=== PATIENT | female | born 1975 | race Caucasian/White ===

== ENCOUNTER 2018-04-15 06:56 | Emergency (ER) | payer OTHER ==
[2018-04-15] MEDS: NS 500 ML IV ×2 (07:31→11:16)
[2018-04-15 07:49] LABS: AMORPHOUS SEDIMENT RFX SMALL (NEGATIVE); BASO # 0.1 10^3/uL (0.0-0.2); BASO % 0.6 % (0.0-1.0); EOS # 0.2 10^3/uL (0.0-0.50); EOS % 1.3 % (0.0-3.0); HEMATOCRIT 37.4 % (36.0-47.0); HEMOGLOBIN 12.4 g/dl (12.0-15.5); IMMATURE GRANULOCYTE % 0.4 % (0-3.0); KETONE, URINE AUTO RFX NEGATIVE (NEGATIVE); LEUKOCYTE ESTERASE UR AUTO RFX NEGATIVE (NEGATIVE); LYMPH # 2.7 10^3/uL (1.5-4.5); MEAN CORPUSCULAR HEMOGLOBIN 29.4 pg (27.0-33.0); MEAN CORPUSCULAR HGB CONC 33.2 g/dl (32.0-36.5); MEAN CORPUSCULAR VOLUME 88.6 fl (80.0-96.0); MONO # 0.9 10^3/uL (0.0-0.8); MUCUS, URINE RFX SMALL (NEGATIVE); NEUTROPHILS # 10.2 10^3/uL (1.8-7.7); NEUTROPHILS % 72.7 % (36.0-66.0); NITRITE, URINE AUTO RFX NEGATIVE (NEGATIVE); PLATELET COUNT, AUTOMATED 499 10^3/uL (150-450); RBC, URINE AUTO RFX 2 /HPF (0-3); RED BLOOD COUNT 4.22 10^6/uL (4.00-5.40); RED CELL DISTRIBUTION WIDTH 13.8 % (11.5-14.5); SPECIFIC GRAVITY UR AUTO RFX 1.014 (1.002-1.035); SQUAM EPITHELIAL CELL UR AURFX 20 /HPF (0-6); WBC, URINE AUTO RFX 2 /HPF (0-3); WHITE BLOOD COUNT 14.1 10^3/uL (4.0-10.0)
[2018-04-15 08:27] LABS: LACTIC ACID SEPSIS PROTOCOL 1.2 MMOL/L (0.4-2.0)
[2018-04-15] MEDS: ONDANSETRON 4 MG ORAL DISINTEGRATING TAB (Q0162 PER 1MG) PO (08:57)
[2018-04-15] MEDS: NS 1,000 ML IV (08:57)
[2018-04-15 09:01] LABS: ALBUMIN 3.6 GM/DL (3.2-5.2); ALKALINE PHOSPHATASE 74 U/L (45-117); ALT/SGPT 25 U/L (12-78); AMYLASE 47 U/L (25-115); ANION GAP 9 MEQ/L (8-16); AST/SGOT 19 U/L (7-37); BILIRUBIN,DIRECT 0.1 MG/DL (0.0-0.2); BILIRUBIN,TOTAL 0.4 MG/DL (0.2-1.0); BLOOD UREA NITROGEN 12 MG/DL (7-18); C REACTIVE PROTEIN QUANTITATIV 2.15 MG/DL (0.00-0.30); CALCIUM LEVEL 8.3 MG/DL (8.5-10.1); CARBON DIOXIDE LEVEL 27 MEQ/L (21-32); CHLORIDE LEVEL 104 MEQ/L (98-107); CREATININE FOR GFR 0.78 MG/DL (0.55-1.30); GLOMERULAR FILTRATION RATE > 60.0 (>58); GLUCOSE, FASTING 104 MG/DL (70-100); LIPASE 49 U/L (73-393); POTASSIUM SERUM 3.3 MEQ/L (3.5-5.1); SODIUM LEVEL 140 MEQ/L (136-145); TOTAL PROTEIN 7.6 GM/DL (6.4-8.2)
[2018-04-15] MEDS: POTASSIUM CHLORIDE 10 MEQ SR TABLET PO (11:12)
[2018-04-15] MEDS: GASTROGRAFIN SOLUTION 30ML PO ×2 (11:57→12:35)
[2018-04-15] MEDS ORDERED: ISOVUE-370 76% 100ML VIAL (Q9967) As Ordered (13:09)
== END 2018-04-15 15:54 | disposition home or self-care (01) ==
LOC: M ED 06:56
DX: A09 Infectious gastroenteritis and colitis, unspecified (principal); I10 Essential (primary) hypertension; Z88.0 Allergy status to penicillin; J30.81 Allergic rhinitis due to animal (cat) (dog) hair and dander; Z79.899 Other long term (current) drug therapy; Z83.79 Family history of other diseases of the digestive system
CPT/HCPCS: Q9963

== ENCOUNTER → 2020-02-09 | Outpatient (REF) | payer OTHER ==
[~2020-02-09] MED LIST: BUPR15TASR PO; MULTCAP PO; NIFE1TAB52 PO; ZOFR4TAB14 SL
== END ==
LOC: M LAB REF 12:16
PROVIDERS: ATTEND Physician Assistant
DX: J02.9 Acute pharyngitis, unspecified (principal)

== ENCOUNTER → 2022-06-08 | Outpatient (REF) | payer OTHER | LOC: M LAB REF 16:22 | PROVIDERS: ATTEND Student in an Organized Health Care Education/Training Program | DX: J02.9 Acute pharyngitis, unspecified (principal) ==

== ENCOUNTER → 2022-06-21 | Outpatient (CLI) | payer OTHER ==
[~2022-06-21] MED LIST changes: +B-122500 PO; +BIOT1TAB6 PO; +BUPR1TAB52 PO; +CETI10CA2 PO; +VITMTA PO
== END ==
LOC: M LABSMTC 09:45
PROVIDERS: ATTEND Anesthesiology
DX: Z01.812 Encounter for preprocedural laboratory examination (principal); Z11.52 Encounter for screening for COVID-19

== ENCOUNTER 2022-06-23 13:13 | Observation (INO) | payer OTHER ==
[~2022-06-23] VITALS: Ht 152.4 cm; Wt 70.8 kg
[~2022-06-23 13:13] MED LIST changes: +HEPARIN SOD (PORCINE) 5000UNITS/ML 1ML VIAL/SYRINGE SQ ONE; +ceFAZolin SOD 2 GM in IV 1 EA IV ONE
[2022-06-23] MEDS ORDERED: fentaNYL 250 MCG/5 ML INJECTION As Ordered ONE (13:20)
[2022-06-23] MEDS ORDERED: propofoL 200 MG/20 ML VIAL As Ordered ONE (13:20)
[2022-06-23] MEDS ORDERED: ROCURONIUM BROMIDE 50MG/5ML VIAL As Ordered ONE ×2 (13:20→17:26)
[2022-06-23] MEDS ORDERED: LIDOCAINE 2% 100MG/5ML SDV (FOR ANES.) As Ordered ONE (13:20)
[2022-06-23] MEDS ORDERED: MIDAZOLAM INJ 2MG/2ML VIAL As Ordered ONE (13:20)
[2022-06-23] MEDS ORDERED: HIBI4LIQ (13:31)
[2022-06-23] MEDS ORDERED: MUPI2OI (13:31)
[2022-06-23] MEDS ORDERED: LR 1,000 ML IV SCH ×3 (13:35→20:10)
[2022-06-23] MEDS ORDERED: LACRILUBE (AKWA TEARS) OPHTH OINT 3.5GM As Ordered ONE (15:39)
[2022-06-23] MEDS ORDERED: GENTAMICIN SULF 80MG/2ML VIAL As Ordered ONE (15:42)
[2022-06-23] MEDS ORDERED: BUPIVACAINE HCL 0.25% 10ML VIAL As Ordered ONE (15:42)
[2022-06-23] MEDS ORDERED: BUPIVACAINE LIPOSOME/PF 1.3% 20ML VIAL (13.3MG/ML)(EXPAREL) As Ordered ONE (15:43)
[2022-06-23] MEDS ORDERED: ACETAMINOPHEN 1000MG 100ML IV BAG As Ordered ONE (16:47)
[2022-06-23] MEDS ORDERED: fentaNYL 100 MCG/2 ML INJECTION As Ordered ONE (18:04)
[2022-06-23] MEDS ORDERED: HYDROmorphone HCL 2MG/ML 1ML VIAL As Ordered ONE (18:04)
[2022-06-23] MEDS ORDERED: METOCLOPRAMIDE INJ 10MG/2ML VIAL As Ordered ONE (18:09)
[2022-06-23] MEDS ORDERED: ONDANSETRON 4MG 2ML VIAL As Ordered ONE (18:09)
[2022-06-23] MEDS ORDERED: SUGAMMADEX SODIUM 500 MG/5 ML VIAL (BRIDION) As Ordered ONE (19:24)
[2022-06-23] MEDS ORDERED: fentaNYL 100 MCG/2 ML INJECTION IV PRN (20:05)
[2022-06-23] MEDS ORDERED: ONDANSETRON 4MG 2ML VIAL IV PRN ×2 (20:05→20:10)
[2022-06-23] MEDS ORDERED: oxyCODONE 5MG TAB PO PRN (20:05)
[2022-06-23] MEDS ORDERED: PERCOCET 5MG/325MG TAB PO PRN (20:10)
[2022-06-23] MEDS ORDERED: ACETAMINOPHEN TAB 650MG DOSE (2X325MG) PO PRN (20:10)
[2022-06-23] MEDS ORDERED: traMADol 50 MG TAB PO PRN (20:10)
[2022-06-23 21:15] VITALS: BP 132/88
[2022-06-23 22:20] VITALS: BP 141/91
[2022-06-23] MEDS ORDERED: CLINDAMYCIN 900 MG in IV 1 EA IV ONE (22:30)
[2022-06-23 23:20] VITALS: BP 121/81
[2022-06-24 00:20] VITALS: BP 120/79
[2022-06-24 01:20] VITALS: BP 119/79
[2022-06-24 02:00] VITALS: BP 114/73
[2022-06-24 06:00] VITALS: BP 117/74
[2022-06-24 07:32] LABS: HEMATOCRIT 30.6 % (36.0-47.0); HEMOGLOBIN 10.2 g/dl (12.0-15.5); MEAN CORPUSCULAR HEMOGLOBIN 30.9 pg (27.0-33.0); MEAN CORPUSCULAR HGB CONC 33.3 g/dl (32.0-36.5); MEAN CORPUSCULAR VOLUME 92.7 fl (80.0-96.0); PLATELET COUNT, AUTOMATED 433 10^3/uL (150-450); WHITE BLOOD COUNT 17.4 10^3/uL (4.0-10.0)
[2022-06-24 08:00] LABS: BLOOD UREA NITROGEN 9 MG/DL (9-23); CALCIUM LEVEL 8.5 MG/DL (8.5-10.1); CARBON DIOXIDE LEVEL 28 MMOL/L (20-31); CHLORIDE LEVEL 102 MMOL/L (98-107); CREATININE FOR GFR 0.55 MG/DL (0.55-1.30); GLOMERULAR FILTRATION RATE > 60.0 (>58); GLUCOSE, FASTING 128 MG/DL (60-100); POTASSIUM SERUM 4.3 MMOL/L (3.5-5.1); SODIUM LEVEL 136 MMOL/L (136-145)
[2022-06-24] MEDS ORDERED: HOME MED LIST COMPLETE! XX SCH (09:10)
[2022-06-24 10:00] VITALS: BP 98/64
[2022-06-24 12:12] LABS: HEMATOCRIT 30.8 % (36.0-47.0); HEMOGLOBIN 10.1 g/dl (12.0-15.5); MEAN CORPUSCULAR HEMOGLOBIN 31.1 pg (27.0-33.0); MEAN CORPUSCULAR HGB CONC 32.8 g/dl (32.0-36.5); MEAN CORPUSCULAR VOLUME 94.8 fl (80.0-96.0); PLATELET COUNT, AUTOMATED 441 10^3/uL (150-450); RED BLOOD COUNT 3.25 10^6/uL (4.00-5.40); WHITE BLOOD COUNT 20.3 10^3/uL (4.0-10.0)
[2022-06-24 14:00] VITALS: BP 123/75
[2022-06-24] MEDS ORDERED: TRAM50TA2 PO (14:45)
[2022-06-24] MEDS ORDERED: CIPR-249 PO (16:05)
== END 2022-06-24 16:00 | disposition home or self-care (01) ==
LOC: M SDC 13:13 → M ED INP 20:06 → M MS5PR 20:55
PROVIDERS: ADMIT Plastic Surgery Surgery of the Hand; ATTEND Plastic Surgery Surgery of the Hand
DX: M54.07 Panniculitis affecting regions of neck and back, lumbosacral region (principal); Z88.1 Allergy status to other antibiotic agents; Z88.0 Allergy status to penicillin; Z98.84 Bariatric surgery status
CPT/HCPCS: 15830; 36415; 80048; 81025; 85027; 88300; 96365; C9290; J0131; J0690; J1100; J1170; J1580; J1644; J2250; J2405; J2765; J3010; S0020; S0077

== ENCOUNTER → 2023-08-26 | Outpatient (CLI) | payer OTHER ==
[~2023-08-26] MED LIST changes: +CIPR-249 PO; -HEPARIN SOD (PORCINE) 5000UNITS/ML 1ML VIAL/SYRINGE SQ ONE; +HIBI4LIQ; +MUPI2OI; +TRAM50TA2 PO; -ceFAZolin SOD 2 GM in IV 1 EA IV ONE
== END ==
LOC: M WHC 14:37
PROVIDERS: ATTEND Advanced Practice Midwife
DX: Z12.31 Encounter for screening mammogram for malignant neoplasm of breast (principal)

== ENCOUNTER → 2023-09-08 | Outpatient (REF) | payer OTHER | LOC: M SFHCWAGY 12:39 | PROVIDERS: ATTEND Advanced Practice Midwife | DX: Z12.4 Encounter for screening for malignant neoplasm of cervix (principal); Z11.51 Encounter for screening for human papillomavirus (HPV) ==

== ENCOUNTER → 2023-09-30 | Outpatient (CLI) | payer OTHER | LOC: M RAD 12:29 | PROVIDERS: ATTEND Advanced Practice Midwife | DX: N92.0 Excessive and frequent menstruation with regular cycle (principal) ==

== ENCOUNTER → 2023-10-25 | Outpatient (REF) | payer OTHER ==
[2023-10-25 18:53] LABS: APPEARANCE, URINE HAZY (CLEAR); BACTERIA, URINE AUTO 1+ (NEGATIVE); BILIRUBIN, URINE AUTO NEGATIVE (NEGATIVE); BLOOD, URINE BLOOD NEGATIVE (NEGATIVE); COLOR, URINE YELLOW (YELLOW); GLUCOSE, URINE (UA) AUTO NEGATIVE (NEGATIVE); HEMOGLOBIN 12.3 g/dl (12.0-15.5); KETONE, URINE AUTO NEGATIVE (NEGATIVE); LEUKOCYTE ESTERASE, URINE AUTO NEGATIVE (NEGATIVE); MEAN CORPUSCULAR HEMOGLOBIN 31.5 pg (27.0-33.0); MEAN CORPUSCULAR HGB CONC 33.2 g/dl (32.0-36.5); MEAN CORPUSCULAR VOLUME 94.6 fl (80.0-96.0); MUCUS, URINE SMALL (NEGATIVE); NITRITE, URINE AUTO NEGATIVE (NEGATIVE); PLATELET COUNT, AUTOMATED 430 10^3/uL (150-450); PROTEIN, URINE AUTO NEGATIVE (NEGATIVE); RBC, URINE AUTO 4 /HPF (0-3); RED BLOOD COUNT 3.91 10^6/uL (4.00-5.40); SPECIFIC GRAVITY URINE AUTO 1.016 (1.002-1.035); SQUAMOUS EPITHELIAL CELL UR AU 1 /HPF (0-6); WBC, URINE AUTO 2 /HPF (0-3); WHITE BLOOD COUNT 9.2 10^3/uL (4.0-10.0)
[2023-10-25 19:20] LABS: IRON (FE) 87 UG/DL (50-170); PERCENT SATURATION 22.5 % (13.2-45.0); TOTAL IRON BINDING CAPACITY 386 UG/DL (250-425)
[2023-10-25 19:21] LABS: ALBUMIN 3.8 G/DL (3.2-5.2); ALKALINE PHOSPHATASE 81 U/L (46-116); ALT/SGPT 23 U/L (7.0-40); AST/SGOT 18 U/L (<34); BILIRUBIN,TOTAL 0.3 MG/DL (0.3-1.2); BLOOD UREA NITROGEN 12 MG/DL (9-23); CALCIUM LEVEL 9.2 MG/DL (8.5-10.1); CARBON DIOXIDE LEVEL 28 MMOL/L (20-31); CHLORIDE LEVEL 102 MMOL/L (98-107); CHOLESTEROL LEVEL 187 MG/DL (<200); CHOLESTEROL RISK RATIO 3.59 (<5); CREATININE FOR GFR 0.63 MG/DL (0.55-1.30); FERRITIN 13.1 NG/ML (7.3-270.7); FOLATE > 24.00 NG/ML (>5.4); GLOMERULAR FILTRATION RATE > 60.0 (>58); GLUCOSE, FASTING 85 MG/DL (60-100); LDL CHOLESTEROL 71.2 MG/DL (<100); POTASSIUM SERUM 4.2 MMOL/L (3.5-5.1); SODIUM LEVEL 136 MMOL/L (136-145); THYROID STIMULATING HORMONE 2.802 uIU/ML (0.55-4.78); TOTAL 25(OH) VITAMIN D 39.3 NG/ML (20.0-100.0); TOTAL PROTEIN 6.8 G/DL (5.7-8.2); TRIGLYCERIDES LEVEL 319 MG/DL (<150); VITAMIN B12 LEVEL 1093 PG/ML (211-911)
[2023-10-25 19:48] LABS: HEMOGLOBIN A1c 5.2 % (4.0-6.0)
== END ==
LOC: M LABDRAWC 17:07
PROVIDERS: ATTEND Physician Assistant Medical
DX: I10 Essential (primary) hypertension (principal); R73.03 Prediabetes; Z98.84 Bariatric surgery status

== ENCOUNTER 2024-05-05 10:30 | Day surgery (SDC) | payer OTHER ==
[~2024-05-05] VITALS: Ht 152.4 cm; Wt 77.5 kg
[~2024-05-05 10:30] MED LIST changes: +THERTAB52 PO
[2024-05-05] MEDS ORDERED: propofoL 200 MG/20 ML VIAL As Ordered ONE (10:57)
[2024-05-05] MEDS ORDERED: HYDROmorphone HCL 2MG/ML 1ML VIAL As Ordered ONE (10:57)
[2024-05-05] MEDS ORDERED: fentaNYL 100 MCG/2 ML INJECTION As Ordered ONE (10:57)
[2024-05-05] MEDS ORDERED: SUGAMMADEX SODIUM 500 MG/5 ML VIAL (BRIDION) As Ordered ONE (10:57)
[2024-05-05] MEDS ORDERED: MIDAZOLAM INJ 2MG/2ML VIAL As Ordered ONE (10:57)
[2024-05-05] MEDS ORDERED: ONDANSETRON 4MG 2ML VIAL As Ordered ONE (10:57)
[2024-05-05] MEDS ORDERED: LIDOCAINE 2% 100MG/5ML SDV (FOR ANES.) As Ordered ONE (10:57)
[2024-05-05] MEDS ORDERED: KETOROLAC 60MG 2ML VIAL As Ordered ONE (10:58)
[2024-05-05] MEDS ORDERED: ROCURONIUM BROMIDE 50MG/5ML VIAL As Ordered ONE (11:00)
[2024-05-05 11:57] LABS: HEMATOCRIT 36.4 % (36.0-47.0); HEMOGLOBIN 12.2 g/dl (12.0-15.5); MEAN CORPUSCULAR HEMOGLOBIN 31.3 pg (27.0-33.0); MEAN CORPUSCULAR HGB CONC 33.5 g/dl (32.0-36.5); MEAN CORPUSCULAR VOLUME 93.3 fl (80.0-96.0); PLATELET COUNT, AUTOMATED 416 10^3/uL (150-450); WHITE BLOOD COUNT 9.6 10^3/uL (4.0-10.0)
[2024-05-05] MEDS ORDERED: LR 1,000 ML IV SCH ×2 (12:55→15:30)
[2024-05-05] MEDS: ceFAZolin SOD 2 GM in IV 1 EA IV ONE ×2 (13:12→13:57)
[2024-05-05] MEDS ORDERED: GLYCOPYRROLATE INJ 0.2 MG/ML 2 ML VIAL As Ordered ONE (13:42)
[2024-05-05] MEDS ORDERED: PHENYLephrine 500MCG 5ML (100MCG/ML) SYRINGE As Ordered ONE (13:43)
[2024-05-05] MEDS ORDERED: fentaNYL 100 MCG/2 ML INJECTION IV PRN (14:35)
[2024-05-05] MEDS ORDERED: HYDROMORPHONE HCL 0.5 MG/ 0.5 ML SYRINGE IV PRN (14:35)
[2024-05-05] MEDS ORDERED: oxyCODONE 5MG TAB PO PRN (14:35)
[2024-05-05] MEDS ORDERED: ONDANSETRON 4MG 2ML VIAL IV PRN (14:35)
[2024-05-05] MEDS ORDERED: NS (Normal Saline) 0.9% 1,000 ML IV SCH (14:35)
[2024-05-05] MEDS ORDERED: PERCOCET 5MG/325MG TAB PO PRN (15:30)
[2024-05-05] MEDS ORDERED: IBUP-1022 PO (15:49)
[2024-05-05] MEDS ORDERED: COLA100C5 PO (15:49)
[2024-05-05] MEDS ORDERED: OXYC1TAB23 PO (15:50)
[2024-05-05] MEDS ORDERED: ESTR1TD TD (15:51)
[2024-05-05 16:40] VITALS: BP 146/90; TEMP 97; O2SAT 100
== END 2024-05-05 16:44 | disposition home or self-care (01) ==
LOC: M SDC 10:30
PROVIDERS: ATTEND Specialist
DX: D25.9 Leiomyoma of uterus, unspecified (principal); N85.8 Other specified noninflammatory disorders of uterus; N73.6 Female pelvic peritoneal adhesions (postinfective); Z88.0 Allergy status to penicillin; J30.81 Allergic rhinitis due to animal (cat) (dog) hair and dander; Z79.899 Other long term (current) drug therapy
CPT/HCPCS: 36415; 58571; 81025; 85027; 86850; 86900; 86901; 88307; J0665; J0690; J1100; J1171; J1596; J2250; J2371; J2405; J3010; S2900

== ENCOUNTER → 2024-08-31 | Outpatient (CLI) | payer OTHER ==
[~2024-08-31] MED LIST changes: +COLA100C5 PO; +ESTR1TD TD; +IBUP-1022 PO; +OXYC1TAB23 PO
== END ==
LOC: M WHC 13:13
PROVIDERS: ATTEND Advanced Practice Midwife
DX: Z12.31 Encounter for screening mammogram for malignant neoplasm of breast (principal)